=== PATIENT | female | born 2000 | race Hispanic/Latino ===

== ENCOUNTER 2022-05-07 05:53 | Observation (INO) | payer MEDICAID ==
[~2022-05-07] VITALS: Ht 154.9 cm; Wt 81.6 kg
[2022-05-07 05:54] VITALS: BP 118/70
[2022-05-07 06:39] LABS: APPEARANCE,URINE CLEAR (CLEAR); BILIRUBIN,URINE NEGATIVE (NEGATIVE); COLOR,URINE YELLOW (YELLOW); GLUCOSE, URINE (UA) NEGATIVE (NEGATIVE); KETONES,URINE NEGATIVE (NEGATIVE); LEUKOCYTE ESTERASE ,URINE SMALL (NEGATIVE); NITRATE,URINE NEGATIVE (NEGATIVE); OCCULT BLOOD,URINE NEGATIVE (NEGATIVE); PROTEIN,URINE NEGATIVE (NEGATIVE); UROBILINOGEN,URINE 0.2 mg/dL (0.2-1.0)
[2022-05-07 06:47] LABS: AMPHET/METH SCREEN,URINE NEGATIVE (NEGATIVE); BARBITURATE SCREEN, URINE NEGATIVE (NEGATIVE); BENZODIAZEPINES SCREEN,URINE NEGATIVE (NEGATIVE); CANNABINOID SCREEN,URINE NEGATIVE (NEGATIVE); COCAINE SCREEN,URINE NEGATIVE (NEGATIVE); OPIATE SCREEN,URINE NEGATIVE (NEGATIVE); PHENCYCLIDINE SCREEN,URINE NEGATIVE (NEGATIVE)
[2022-05-07 07:18] LABS: BACTERIA,URINE Rare /HPF (None Seen); RBC,URINE 0-1 /HPF (0-1); SQUAMOUS EPITHELIAL CELL,UR Moderate /HPF (0-2)
[2022-05-07] MEDS ORDERED: LACTATED RINGERS 1000ML IV PRN (07:30)
[2022-05-07] MEDS ORDERED: LACTATED RINGERS 1000ML 1,000 ML IV SCH (08:30)
== END 2022-05-07 09:40 | disposition home or self-care (01) ==
LOC: EDH 05:53 → LDH 05:54
PROVIDERS: ADMIT Obstetrics & Gynecology; ATTEND Obstetrics & Gynecology
DX: Z34.83 Encounter for supervision of other normal pregnancy, third trimester (principal); Z3A.36 36 weeks gestation of pregnancy
CPT/HCPCS: 80305; 81001; 96360; 96361; G0378 ×4; J7120

== ENCOUNTER 2025-04-29 02:22 | Emergency (ER) | payer SELFPAY ==
[~2025-04-29] VITALS: Ht 154.9 cm; Wt 90.9 kg
[~2025-04-29 02:22] MED LIST: DOCU-116 PO; IBUP-2077 PO; PNV#1CAP15 PO
--- NOTE | 2025-04-29 04:09 | ERN ---
General Chief Complaint: Foreignbody Ear Stated Complaint: FOREIGN BODY IN EAR Time Seen by MD: 02:50 History of Present Illness Initial Comments 24-year-old female who comes in today with concerns of cotton left in her left ear. She reports that she has cotton swabs and she is concerned she might have left a left cotton swab in her your Allergies: Coded Allergies: No Known Allergies (Unverified Allergy, Unknown, 05/07/22) Home Meds Reported Medications Ibuprofen (Ibuprofen 800 mg Tab) 800 Mg Tab, 800 MG PO Q8H PRN for PAIN, #60 TAB 06/06/22 Docusate Sodium (Colace) 100 Mg Capsule, 100 MG PO BID, #60 CAP 06/06/22 Pnv#67/Iron Ps/FA Cmb#1/Dha (Vitafol Ultra Softgel) 1 Each Capsule, 1 EACH PO DAILY, CAP 06/03/22 Past Medical History Past Medical History: No Pertinent History Past Surgical History: None Female( History) : 1 Para: 0 Aborts: 0 ROS Dictation Constitutional: Negative for fever,chills, and weight loss Eyes: Negative for injury, pain,redness, and discharge ENT: Left ear discomfort Cardiovascular: Negative for chest pain, palpitations, and edema Respiratory: Negative for shortness of breath, cough, and wheezing, Abdomen/GI: Negative for abdominal pain, nausea, vomiting, diarrhea, and constipation Back: Negative for injury and pain : Negative for injury, bleeding and discharge MS/Extremity: Negative for injury and deformity Skin: Negative for rash, and discoloration Neuro: Negative for headache, weakness, numbness, tingling, and seizure Psych: Negative for suicide ideation, homicidal ideation, and hallucinations Physical Exam Physical Exam Dictation General: awake, alert, NAD Head/Face: Normocephalic, atraumatic Eyes: PERRL, EOMI, vision at baseline ENT: Under otoscopic exam of left ear patient appears to have dry wax but no evidence of a foreign body. Right ear is within normal limits Neck: Trachea midline, supple, no nuchal rigidity Cardiovascular: RRR, normal S1/S2 Respiratory: CTAB, no respiratory distress, No rales or wheezes Abdomen: Soft, non-tender, non-distended Skin: Warm, dry, normal turgor, no rash MS/Extremity: Pulses equal, no cyanosis Neuro: COAx4, GCS 15, strength 5/5, CN 2-12 intact MDM Patient has had multiple flushes of the left ear and has not had any foreign body removed. Patient at this time would like to go home. Patient will be discharged to follow up with the primary care physician MDM: Differential diagnosis: Foreign body, cerumen of left ear Rationale: Tests considered and ordered secondary to shared decision making include: Previous outside records reviewed: Old ER visits. Risk of complication and/or morbidity or mortality of patient management: None Medications-Per medication reconciliation Need for hospitalization: Patient does not meet criteria for hospitalization. Need for emergency major/minor surgery: No There are no social concerns with this patient. Prescription drug management Prescriptions will include symptomatic care Patient's prior external medical records from other ER visits were reviewed by me as indicated. Prior testing and results from previous visits were reviewed. Prior tests were taken into account with medical decision making and resource utilization, independent historian/historians were used to obtain complete medical history. I independently interpreted the test that were performed, results were reviewed by me and considered findings on radiology if ordered. Medical management and examination interpretation discussions were had by me with other qualified healthcare professionals as indicated for the patient's care. ED Course Orders Procedure Category Date Status Time *Nursing CPOE 04/29/25 Transmitted Communication: 03:09 Vital Signs Date Time Temp Pulse Resp B/P (MAP) Pulse Ox O2 Delivery O2 Flow Rate FiO2 04/29/25 02:33 97.3 92 16 124/82 98 Room Air 0 DX & DISP Disposition: Discharge Departure Impression: Primary Impression: Impacted cerumen, left ear Condition: Stable Additional Instructions: Please follow up with the primary care physician for further evaluation and care. Please be careful with cotton swabs. Please make sure you have daily attention and wash your bilateral ears. Referrals: SELF,REFERRAL (PCP) BAMBI MENON MD Apr 29, 2025 04:09
[2025-04-29 04:19] VITALS: BP 129/63; PULSE 75; RESP 15; TEMP 97.4; O2SAT 100
== END 2025-04-29 04:28 | disposition home or self-care (01) ==
LOC: EDH 02:22
DX: H61.22 Impacted cerumen, left ear (principal)
CPT/HCPCS: 99281; 99282